=== PATIENT | male | born 1995 | race Caucasian/White ===

== ENCOUNTER 2024-03-21 03:49 | Emergency (ER) | payer OTHER ==
[~2024-03-21] VITALS: Ht 180.3 cm; Wt 98.9 kg
[2024-03-21 07:06] LABS: BASO # 0.1 10^3/uL (0.0-0.2); BASO % 0.9 % (0.0-1.0); EOS # 0.1 10^3/uL (0.0-0.5); EOS % 1.6 % (0.0-3.0); HEMATOCRIT 41.6 % (42.0-52.0); HEMOGLOBIN 13.9 g/dl (13.5-17.5); LYMPH # 2.1 10^3/uL (1.5-5.0); LYMPH % 30.4 % (24.0-44.0); MEAN CORPUSCULAR HEMOGLOBIN 30.5 pg (27.0-33.0); MEAN CORPUSCULAR HGB CONC 33.4 g/dl (32.0-36.5); MEAN CORPUSCULAR VOLUME 91.4 fl (80.0-96.0); MONO # 0.6 10^3/uL (0.0-0.8); MONO % 8.2 % (2.0-8.0); NEUTROPHILS # 4.2 10^3/uL (1.5-8.5); NEUTROPHILS % 58.8 % (36.0-66.0); PLATELET COUNT, AUTOMATED 340 10^3/uL (150-450); RED BLOOD COUNT 4.55 10^6/uL (4.30-6.10); WHITE BLOOD COUNT 7.1 10^3/uL (4.0-10.0)
[2024-03-21 07:34] LABS: LIPASE 23 U/L (12-53)
[2024-03-21 07:36] LABS: ALBUMIN 4.6 G/DL (3.2-5.2); ALKALINE PHOSPHATASE 79 U/L (46-116); ALT/SGPT 15 U/L (7.0-40); AST/SGOT 13 U/L (<34); BILIRUBIN,DIRECT 0.4 MG/DL (<0.4); BLOOD UREA NITROGEN 11 MG/DL (9-23); CALCIUM LEVEL 9.6 MG/DL (8.5-10.1); CARBON DIOXIDE LEVEL 31 MMOL/L (20-31); CHLORIDE LEVEL 106 MMOL/L (98-107); CK-MB VALUE MASS < 1.0 NG/ML (<3.6); CREATININE FOR GFR 0.85 MG/DL (0.70-1.30); GLOMERULAR FILTRATION RATE > 60.0 (>60); GLUCOSE, FASTING 103 MG/DL (60-100); POTASSIUM SERUM 4.6 MMOL/L (3.5-5.1); SODIUM LEVEL 140 MMOL/L (136-145); TOTAL PROTEIN 7.2 G/DL (5.7-8.2)
[2024-03-21 07:37] LABS: CPK CREATINE PHOSPHOKINASE 98 U/L (46-171); MB/CK RELATIVE INDEX 1.02 (< OR =4)
[2024-03-21 08:24] LABS: CK-MB VALUE MASS < 1.0 NG/ML (<3.6)
[2024-03-21 08:25] LABS: CPK CREATINE PHOSPHOKINASE 95 U/L (46-171); MB/CK RELATIVE INDEX 1.05 (< OR =4)
[2024-03-21] MEDS: KETOROLAC 30 MG/ML 1ML VIAL IV ONE (08:26)
[2024-03-21 08:45] VITALS: BP 108/62; TEMP 96.9; O2SAT 99
== END 2024-03-21 09:01 | disposition home or self-care (01) ==
LOC: M ED 03:49
DX: R07.89 Other chest pain (principal); M25.512 Pain in left shoulder; R00.1 Bradycardia, unspecified; R06.02 Shortness of breath; R51.9 Headache, unspecified
CPT/HCPCS: 71045; 73030; 80048; 80076; 82550; 82553; 83690; 84484; 85025; 93005; 93041; 94760; 96374; 99284; J1885

== ENCOUNTER → 2024-03-31 | Outpatient (REF) | payer OTHER ==
[2024-03-31 15:27] LABS: SEMEN APPEARANCE OPAQUE (OPAQUE); SEMEN VISCOSITY LIQUID (LIQUID)
[2024-03-31 15:28] LABS: SEMEN WBC >1 M/ml (<=1 M/ml); SEMEN pH 8.5 (7.0-8.0)
== END ==
LOC: M LAB REF 11:19
PROVIDERS: ATTEND General Practice
DX: Z31.41 Encounter for fertility testing (principal)

== ENCOUNTER → 2025-01-21 | Outpatient (CLI) | payer OTHER | LOC: M RAD 10:40 | PROVIDERS: ATTEND Physician Assistant | DX: M54.9 Dorsalgia, unspecified (principal) ==

== ENCOUNTER → 2025-03-12 | Outpatient (CLI) | payer OTHER | LOC: M RAD 10:58 | PROVIDERS: ATTEND Plastic Surgery Surgery of the Hand | DX: D17.0 Benign lipomatous neoplasm of skin and subcutaneous tissue of head, face and neck (principal) ==

== ENCOUNTER 2025-05-07 08:08 | Day surgery (SDC) | payer OTHER ==
[~2025-05-07] VITALS: Ht 180.3 cm; Wt 93.9 kg
[~2025-05-07 08:08] MED LIST: TRAZ-252 PO
[2025-05-07] MEDS: LR 1,000 ML IV SCH (09:00)
[2025-05-07] MEDS ORDERED: dexAMETHasone 4 MG/ML 1 ML VIAL As Ordered ONE (11:12)
[2025-05-07] MEDS ORDERED: ROCURONIUM BROMIDE 50MG/5ML VIAL As Ordered ONE (11:12)
[2025-05-07] MEDS ORDERED: ONDANSETRON 4MG 2ML VIAL As Ordered ONE (11:12)
[2025-05-07] MEDS ORDERED: SUGAMMADEX SODIUM 500 MG/5 ML VIAL As Ordered ONE (11:12)
[2025-05-07] MEDS ORDERED: LIDOCAINE 2% 100 MG/5 ML SDV (FOR ANES.) As Ordered ONE (11:12)
[2025-05-07] MEDS ORDERED: MIDAZOLAM INJ 2 MG/2 ML VIAL As Ordered ONE (11:12)
[2025-05-07] MEDS ORDERED: dexmedeTOMIDine (4 MCG/ML) 200 MCG/50 ML BTL As Ordered ONE (11:17)
[2025-05-07] MEDS: ceFAZolin SOD 2 GM IV ONCE IV ONE (12:00)
[2025-05-07] MEDS ORDERED: LACRILUBE (AKWA TEARS) OPHTH OINT 3.5 GM As Ordered ONE (12:12)
[2025-05-07] MEDS ORDERED: HYDROmorphone HCL 2 MG/ML 1 ML VIAL As Ordered ONE (12:15)
[2025-05-07] MEDS ORDERED: ACETAMINOPHEN 1000MG/100ML IV BAG As Ordered ONE (12:31)
[2025-05-07] MEDS: LIDOCAINE W/EPINEPHrine 1% 20 ML VIAL As Ordered ONE (12:34)
[2025-05-07] MEDS ORDERED: HYDROMORPHONE HCL 0.5 MG/0.5 ML SYRINGE IV PRN (12:50)
[2025-05-07] MEDS ORDERED: LR 1,000 ML IV SCH (12:50)
[2025-05-07] MEDS ORDERED: ONDANSETRON 4MG 2ML VIAL IV PRN (12:50)
[2025-05-07] MEDS ORDERED: TRAM-533 PO (15:21)
[2025-05-07 15:56] VITALS: BP 116/65; TEMP 97.3; O2SAT 97
== END 2025-05-07 16:04 | disposition home or self-care (01) ==
LOC: M SDC 08:08
PROVIDERS: ATTEND Plastic Surgery Surgery of the Hand
DX: D17.0 Benign lipomatous neoplasm of skin and subcutaneous tissue of head, face and neck (principal); Z87.891 Personal history of nicotine dependence
CPT/HCPCS: 21012; 88307; J0131; J0690; J1100; J1171; J2250; J2405; J3010